=== PATIENT | male | born 1985 | race Caucasian/White ===

== ENCOUNTER 2024-05-17 22:22 | Emergency (ER) | payer OTHER, SELFPAY ==
[2024-05-17 22:29] VITALS: BP 137/89; PULSE 156; RESP 18; TEMP 36.9; O2SAT 95; BMI 26.2
[2024-05-17 23:29] LABS: Appearance Urine Clear (Clear); Bilirubin Urine Negative (Negative); Blood Urine Negative (Negative); Color Urine Yellow (Yellow); Glucose Urine Negative (Negative); Ketones Urine Negative (Negative); Leukocyte Esterase Urine Negative (Negative); Nitrite Urine Negative (Negative); Protein Urine Negative (Negative); Specific Gravity Urine <= 1.005 (1.000-1.030); Urobilinogen Urine 0.2 (0.2-1.0); pH Urine 5.5 (5.0-8.5)
--- NOTE | 2024-05-17 23:35 | ED.ALCOHOL ---
HPI - Alcohol General Chief Complaint: Alcohol/Intoxication Stated Complaint: wants to detox Time Seen by Provider: 05/17/24 23:23 History of Present Illness HPI narrative: This 38-year-old male comes in with his sister because of alcohol intoxication. He states that he has been using alcohol abusively for the past 20 years or so. He drinks lots of alcohol over the course of about 4 hours during the day and then begins to have withdrawal symptoms by the next day at which time he takes alcohol again. 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 He states that he gets very diaphoretic and shaky at times and these symptoms are relieved after taking alcohol. He is interested in detox and wants to quit this lifestyle. He denies taking any other street drugs. He states that he does take Adderall. He reports that his last drink was about 2 hours ago. Currently he is not feeling any withdrawal symptoms. Related Data Home Medications ?Medication ?Instructions ?Recorded ?Confirmed dextroamphetamine-amphetamine ER 10 mg PO DAILY 05/17/24 05/17/24 10 mg 24hr capsule,extend release (Adderall XR) Allergies Allergy/AdvReac Type Severity Reaction Status Date / Time pencillin Allergy Mild hive Uncoded 05/17/24 22:41 Review of Systems Status of ROS Reports: 10 or more systems reviewed and unremarkable except as noted in History and below Narrative Constitutional: No fevers, no weight gain or loss. Eyes: No discharge. No vision changes. HENT: No congestion, no sore throat, no ear pain. Cardiovascular: No chest pain, no palpitations. Respiratory: No shortness of breath, no wheezes, no cough. Gastrointestinal: No abdominal pain, no vomiting, no diarrhea. Genitourinary: No dysuria, no hematuria. Musculoskeletal: Normal range of motion. Skin: No rashes, no pruritis. Neurological: No dizziness, weakness, sensory change, speech change. Endo/Heme/Allergies: No bruising or bleeding. No polydipsia. Pysch: no suicidality, no anxiety, no insomnia. Alcohol abuse with withdrawal symptoms daily. All other systems reviewed and are negative. Exam Narrative: Exam Narrative: Constitutional: Well-developed, well-nourished, no acute distress. HEENT: Normocephalic, atraumatic. Neck: Normal range of motion. Nontender. Supple. Heart: Regular. No murmurs. Normal rate. Intact distal pulses. Lungs: Clear to auscultation. No chest discomfort. No wheezes, rhonchi, or rales. Abdomen: Normal bowel sounds. Nontender. No rebound tenderness. Genitalia: Deferred. Back: No midline tenderness. Normal range of motion. Extremities: Normal range of motion. No injury. Skin: Intact. No rash. Warm. No erythema or pallor. Neurologic: No altered sensation. No weakness. Alert and oriented. Psychiatric: No suicidality. No anxiety or depression. Alcohol abuse with daily withdrawal symptoms. Nursing notes and vitals signs are reviewed. Const: Vital Signs, click to edit/add: Vital Signs - 24 hr 05/17/24 22:29 Temperature 98.5 F Pulse Rate [Pulse Oximeter] 156 H Respiratory Rate 18 Blood Pressure [Ri ght Upper Arm] 137/89 Pulse Oximetry 95 Oxygen Delivery Me thod Room Air Course Vital Signs Vital signs: Initial Vital Signs Temperature 98.5 F 05/17/24 22:29 Temperature Source Temporal Artery Scan 05/17/24 22:29 Pulse Rate 156 H 05/17/24 22:29 Respiratory Rate 18 05/17/24 22:29 Blood Pressure 137/89 05/17/24 22:29 Blood Pressure Mean 105 05/17/24 22:29 Blood Pressure Position Sitting 05/17/24 22:29 Pulse Oximetry 95 05/17/24 22:29 Oxygen Delivery Method Room Air 05/17/24 22:29 Vital Signs Temperature 98.5 F 05/17/24 22:29 Pulse Rate 156 H 05/17/24 22:29 Respiratory Rate 18 05/17/24 22:29 Blood Pressure 137/89 05/17/24 22:29 Pulse Oximetry 95 05/17/24 22:29 Oxygen Delivery Method Room Air 05/17/24 22:29 Temperature 98.5 F 05/17/24 22:29 Pulse Rate 156 H 05/17/24 22:29 Respiratory Rate 18 05/17/24 22:29 Blood Pressure 137/89 05/17/24 22:29 Pulse Oximetry 95 05/17/24 22:29 Oxygen Delivery Method Room Air 05/17/24 22:29 MDM - Alcohol MDM Narrative Medical decision making narrative: This patient comes in seeking detox and treatment to help stop taking alcohol. He arrives with normal vital signs but is tachycardic. He did receive an oral dose of Ativan 2 mg. Arrangements are being made for placement in detox. Discharge Plan Discharge Clinical Impression: Alcohol withdrawal syndrome Prescriptions: No Action dextroamphetamine-amphetamine [Adderall XR] 10 mg capsule,extended release 24hr 10 mg PO DAILY
[2024-05-17 23:36] LABS: RBC Urine 0-2 (0-2); Squamous Epithelial Cell Urine Few (None-Few); WBC Urine 0-2 (0-5)
[2024-05-17] MEDS: LORazepam 0.5 MG TABLET 2 MG PO (23:39)
[2024-05-17 23:41] VITALS: BP 122/76; PULSE 106; RESP 18; O2SAT 98
[2024-05-17 23:53] LABS: Basophils Absolute Auto 0.04 K/uL (0.00-0.30); Basophils Percent Auto 0.7 % (0.0-3.0); Eosinophils Absolute Auto 0.14 K/uL (0.00-0.50); Eosinophils Percent Auto 2.5 % (0.0-7.0); Hematocrit 42.6 % (37.0-53.0); Hemoglobin* 15.2 gm/dL (13.5-17.5); Immature Granulocytes Abs Auto 0.04 K/uL (0.00-0.30); Immature Granulocytes Pct Auto 0.7 %; Lymphocytes Absolute Auto 1.69 K/uL (0.90-2.90); Lymphocytes Percent Auto 30.7 % (20-44); Mean Corpuscular HGB Conc 36 gm/dL (32-36); Mean Corpuscular Hemoglobin 32 pg (26-34); Mean Corpuscular Volume 88 fL (80-100); Monocytes Percent Auto 4.7 % (0.0-11.0); Neutrophils Absolute Auto 3.34 K/uL (1.7-7.0); Neutrophils Percent Auto 60.7 % (42.0-72.0); Platelet Count* 266 K/uL (140-440); RDW Coefficient of Variation % 11.6 % (11.5-15.5); Red Blood Count 4.83 m/uL (4.30-5.90); White Blood Count* 5.51 K/uL (4.50-11.00)
[2024-05-17 23:54] LABS: Slide Review Reflex No
--- OUTSIDE RECORDS SUMMARY | 2024-05-17 23:59 | XMS_ITS | Clinical Summary ---
Author Organization [facility] Address [address] [place] [id number] Care Team Providers Care Mechanical Assembly Name Role Phone Vernon Fine MD Primary Care Provider + Allergies Active Allergy Reactions Criticality Noted Date Comments Amoxicillin Hives 02/28/2015 Penicillins Hives 02/28/2015 Medications multivitamin (MVI) tablet Take 1 tablet by mouth once daily. 0 7 Active cholecalciferol (VITAMIN D-3) 2,000 unit capsule Take 1 capsule by mouth once daily. 0 7 Active Citrulline 1 gram/4 gram pwpk 1 Active creatine, bulk, 100 % powd 1 Active dextroamphetamine- amphetamine (Adderall XR) 20 mg Extended-Release capsuleIndications :ADHD, predominantly inattentive type Take 1 Capsule (20 mg) by mouth once daily. 30 Capsule 2 Active dextroamphetamine- amphetamine (Adderall XR) 20 mg Extended-Release capsuleIndications :ADHD, predominantly inattentive type Take 1 Capsule (20 mg) by mouth once daily. 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 Immunizations Immunization Administration Dates Next Due DTP 02/07/1991, 0,05/29/1987,1986,1986 Hepatitis B, Unspecified 06/07/2002,11/23/2001,0 09/14/2001 Hib Conjugate, Unspecified 08/23/1989 Inactivated Polio Vaccine 02/07/1991,,05/29/1987,1986,1986 Influenza, IIV4 11/25/2020 MMR 09/11/1998,09/25/1991,11/11/1987 Td, Preservative Free (age > = 7 Years) 09/14/2001,09/11/1998 Tdap 02/26/2015,09/14/2001 Family History Medical History Relation Name Comments Neuropathy Father Thyroid Disease Father Graves COPD Mother Cancer-breast Mother in remission Other Mother emphysema, smok er Psychiatric illness Mother possible anxiety, insomnia Other Other pat cousin 18 s [place] cardiac in basketball game Premature CHD (under age 60) Paternal Grandfather several [place], 1st age 18 Good Health Sister Relation Name Status Comments Father Alive Mother Alive Other Paternal Grandfather Sister Alive Social History Tobacco Use Types Packs/Day Years Used Date Smoking Tobacco: Former Cigarettes Q uit: 02/07/2017 Smokeless Tobacco: Never Tobacco Cessation:Ready to Q uit: Yes; Counseling Given: Yes Alcohol Use Standard Drinks/Week Comments Yes 0 (1 standard drink = 0.6 oz pur e alcohol) 3/week PHQ-2 Answer Date Recorded PHQ-2 TOTAL SCORE 0 04/29/2020 Social Connections Answer Date Recorded Frequency of Communication with Friends and Fami ly Not on file 02/07/2021 Financial Resource Strain Answer Date R ecorded Difficulty of Paying Living Expenses Not on file 02/07/2021 Difficulty of Paying Living Expenses Not on file 02/07/2021 Sex and Gender Information Value Date Recorded Sex Assigned at Male 04/28/2020 12:00 PM CDT 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 Gender Identity Male 04/28/2020 12:00 PM CDT Sexual Orientation Straight 04/28/2020 12 :00 PM CDT Obstetrics History Last Filed Vital Signs Vital Sign Reading Time Taken Comments Blood Pressure 120/66 11/25/2020 8:55 AM CDT Pulse 74 11/25/2020 8:55 AM CDT Temperature 36.4 C (97.6 F) 08/27/2020 2:16 PM CDT Respiratory Rate 16 08/28/2018 10:28 AM CDT Oxygen Saturation 100% 08/27/2020 2:16 PM CDT Inhaled Oxygen Concentration - - Weight 90.7 kg (200 lb) 11/25/2020 8:55 AM CDT Height 186.4 cm (6' 1.39) 04/29/2020 2:10 PM CD T Body Mass Index 26.11 04/29/2020 2:10 PM CDT Plan of Treatment Health Maintenance Due Date Last Done Comments HIV for age 15-65 2001 Hepatitis C screening for age 18-79 2004 BMI (ht and wt on same day) for age 18+ 04/29/2021 04/29/2020, 03/20/2019, 11/01/2018, Additional history exists Depression screening for age 12+ 04/29/2021 04/29/2020, 11/01/2018, 12/13/2016, Additional history exists Lipids for age 35-44 2021 COVID-19 vaccine series ( season) 2023 Influenza Vaccine (Season Ended) 2024 11/25/2020 Tetanus booster 02/26/2025 02/26/2015, 09/2001, 09/14/2001, Additional history exists Tdap Completed 02/26/2015, 09/14/2001 Pneumococcal series for age 6-49 Aged Out No longer eligible based on patient's age to complete this topic Insurance [facility] [employer] [address] [place] [id number] Care Teams Mechanical Assembly Relationship Specialty Start Date End Date Vernon Fine MD [address] [address] PCP - General Family Practice 03/12/15
--- OUTSIDE RECORDS SUMMARY | 2024-05-17 23:59 | XMS_ITS | Encounter Summary ---
Author Organization [email or web address] Address [address] [place] [address] Care Team Providers Care Car Rental Deliverer Name Role Phone Ceasar Roland PA-C Primary Care Provider [phone] Reason for Visit * Reason Comments Medication Questions Entered automatical ly based on patient selection in [facility]. Encounter Details Date Type Department Care Team (Late st Contact Info) Description 04/16/2024 11:30 AM CDT E-Visit [place] [id number] [facility] [id number] [place] [address] Ceasar Roland PA-C [address] [place] [address] Dx: Attention deficit hyperactivity disorder (ADHD), predominantly inattentive type (HRC) Social History Tobacco Use Types Packs/Day Years Used Date Smoking Tobacco: Former Cigarettes 1 17 0 05/27/2003 - 05/26/2020 Passive Smoke Exposure: Past Smokeless Tobacco: Current Last attempted to quit: 08/17/2014 Comments:Nicotene Packet/Gum Alcohol Use Standard Drinks/Week Comments Yes 0 (1 standard drink = 0.6 oz pur e alcohol) Infrequent. PHQ-2 Answer Date Recorded PHQ-2 Score 2 07/07/2023 Financial Resource Strain Answer Date R ecorded Is it hard for you to pay fo r the very basics like food, housing, medical care or heating? No 04/28/2023 Food Insecurity Answer Date Recorded Does your food run out before you have the money to buy more? No 04/28/2023 Transportation Needs Answer Date Record ed Does a lack of transportatio n keep you from your medical appointments or from getting your medications? 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 Signed order needed. Requested medication needs an order signed by an authorized prescriber. See pt's [facility] message. Pt last appointment with PCP was on 07/07/23. Pt has appointment scheduledon 05/02/24. Medication last prescribed with start date of 03/19/24 for #60 with no refills Review pended order for accuracy and sign if appropriate Requested Prescriptions Pending Prescriptions Disp Refills amphetamine-dextroamphetamine XR (ADDERALL XR) 10 MG 24 hour release capsule 60 Capsule 0 Sig: Take 1 Capsule (10 mg) by mouth two times a day for 30 days. Problem list reviewed as related to this call. Future Appointments Date Time Provider Department Center 05/02/2024 10:30 AM Ceasar Roland PA-C [facility] documented in this encounter Plan of Treatment Not on file documented as of this encounter Visit Diagnoses Diagnosis Attention deficit hyperactivity disorder (ADHD), predominantly inattentive type (HRC) documented in this encounter Care Teams Car Rental Deliverer Relationship Specialty Start Date End Date Ceasar Roland PA-C [address] [place] [address] PCP - General Physician Sub Plant Manager 11/23/23 documented as of this encounter
--- OUTSIDE RECORDS SUMMARY | 2024-05-17 23:59 | XMS_ITS | Clinical Summary ---
Author Organization [employer] Address [address] [place] [address] Care Team Providers Care Logistics Account Manager Name Role Phone Ceasar Roland PA-C Primary Care Provider [phone] Source Comments You are receiving this document as you are listed as the primary care provider,follow-up provider, or the patient has been referred to you for consultation.This is in compliance with the Medicare and[facility] EHR Incentive Program,which states Providers who transition their patient to another setting of careor provider of care or refers their patient to another provider of care shouldprovide summary care record for each transition of care or referral. i[facility]IM[facility] Allergies Active Allergy Reactions Criticality Noted Date Comments Penicillins Hives High 02/26/2015 Medications MULTIPLE VITAMIN OR Active amphetamine-dext roamphetamine XR (ADDERALL XR) 20 MG 24 hour release capsuleIndicatio ns:Attention deficit hyperactivity disorder (ADHD), unspecified ADHD type (HRC) Take 1 Capsule (20 mg) by mouth daily for 30 days. 1 of 3 30 Capsule 05/03/19 25 025 Active amphetamine-dext roamphetamine XR (ADDERALL XR) 20 MG 24 hour release capsuleIndicatio ns:Attention deficit hyperactivity disorder (ADHD), unspecified ADHD type (HRC) Take 1 Capsule (20 mg) by mouth daily for 30 days. 2 of 3 Do not start before June 01, 2024. 30 Capsule 06/02/19 25 025 Active amphetamine-dext roamphetamine XR (ADDERALL XR) 20 MG 24 hour release capsuleIndicatio ns:Attention deficit hyperactivity disorder (ADHD), unspecified ADHD type (HRC) Take 1 Capsule (20 mg) by mouth daily for 30 days. 3 of 3 Do not start before July 01, 2024. 30 Capsule 07/02/19 25 025 Active amphetamine-dext roamphetamine XR (ADDERALL XR) 10 MG 24 hour release capsuleIndicatio ns:Attention deficit hyperactivity disorder (ADHD), predominantly inattentive type (HRC) Take 1 Capsule (10 mg) by mouth two times a day for 30 days. Do not start before January 18, 2024. 60 Capsule 01/18/20 24 025 Discontinued amphetamine-dext roamphetamine XR (ADDERALL XR) 10 MG 24 hour release capsuleIndicatio ns:Attention deficit hyperactivity disorder (ADHD), predominantly inattentive type (HRC) Take 1 Capsule (10 mg) by mouth two times a day for 30 days. 60 Capsule 12/21/19 24 025 Discontinued cyclobenzaprine (FLEXERIL) 5 MG tablet Take 1-2 Tablets (5-10 mg) by mouth three times a day as needed for Muscle Spasms. Best taken before bed 20 Tablet 02/07/20 24 025 Discontinued(*R esolved Condition) amphetamine-dext roamphetamine XR (ADDERALL XR) 10 MG 24 hour release capsuleIndicatio ns:Attention deficit hyperactivity disorder (ADHD), predominantly inattentive type (HRC) Take 1 Capsule (10 mg) by mouth two times a day for 30 days. 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 Encounters Date Type Department Care Team Description 05/03/2024 Results Follow-Up [place] [address] [facility] [id number] [place] [phone] Ceasar Roland PA-C 05/02/2024 11:00 AM CDT Lab Visit [facility] [id number] [place] [address] [phone] Elevated liver enzymes; Well adult exam 05/02/2024 10:30 AM CDT Office Visit [address] [phone] Ceasar Roland PA-C Well adult exam (Primary Dx); Attention deficit hyperactivity disorder (ADHD), unspecified ADHD type (HRC); Elevated liver enzymes 04/16/2024 11:30 AM CDT E-Visit [address] [phone] Ceasar Roland PA-C Dx: Attention deficit hyperactivity disorder (ADHD), predominantly inattentive type (HRC) 03/19/2024 9:30 AM RUCHING MACHINE OPERATOR E-Visit [address] [phone] Ceasar Roland PA-C Dx: Attention deficit hyperactivity disorder (ADHD), predominantly inattentive type (HRC) from Last 3 Months Immunizations Immunization Administration Dates Next Due DTP 02/07/1991, 0,05/29/1987,1986,1986 HepB Ped/Adol (0-18 yrs) 06/07/2002,11/23/2001,0 09/14/2001 HepB, Unspecified Formulation 06/07/2002, 002,09/14/2001 Hib, Unspecified Formulation 08/23/1989 IPV (Polio) 02/07/1991, 0,05/29/1987,1986,1986 Influenza IIV4 (Quadrivalent ) 0.5mL (65382) 11/25/2020 MMR 09/11/1998,09/25/1991,11/11/1987 OPV, Trivalent (Orimune or tOPV) 992,08/23/1989,05/29/1987,1986,1986 Td (7+ yrs) 09/14/2001,09/11/1998 Td, Preservative Free 09/14/2001 Tdap 02/26/2015,09/14/2001 Family History Medical History Relation Name Comments Cancer, Melanoma Father Cancer, Prostate Father Diabetes, Type II Father Cancer, Colon Paternal Grandmother Relation Name Status Comments Father Alive Mother Alive Paternal Grandmother Social History Tobacco Use Types Packs/Day Years Used Date Smoking Tobacco: Former Cigarettes 1 17 0 05/27/2003 - 05/26/2020 Passive Smoke Exposure: Past Smokeless Tobacco: Current Last attempted to quit: 08/17/2014 Tobacco Cessation:Ready to Q uit: Not Asked; Counseling Given: Not Answered Comments:Nicotene Packet/Gum Alcohol Use Standard Drinks/Week Comments Yes 0 (1 standard drink = 0.6 oz pur e alcohol) Infrequent. PHQ-2 Answer Date Recorded PHQ-2 Score 2 07/07/2023 Hunger Vital Sign Answer Date Recorded Within the past 12 months, y ou worried that your food would run out before you got the money to buy more. Never true 05/02/19 Within the past 12 months, t he food you bought just didn't last and you didn't have money to get more. Never true 05/01/2024 PRAPARE - Transportation Answer Date Re corded In the past 12 months, has l ack of transportation kept you from medical appointments or from getting medications? No 04/08 In the past 12 months, has l ack of transportation kept you from meetings, work, or from getting things needed for daily living? No 05/01/2024 Housing Stability Vital Sign Answer Gavin e Recorded In the last 12 months, was t here a time when you were not able to pay the mortgage or rent on time? No 05/01/2024 In the past 12 months, how m any times have you moved where you were living? 0 05/01/2024 At any time in the past 12 m [facility], were you homeless or living in a penitentiary (including now)? No 05/01/2024 Financial Resource Strain Answer Date R ecorded [...] Sex Assigned at Male 01/06/2021 8:29 AM RUCHING MACHINE OPERATOR Legal Sex Male 4:54 AM CDT Gender Identity Male 01/06/2021 8:29 AM RUCHING MACHINE OPERATOR Sexual Orientation Straight 01/06/2021 8: 29 AM RUCHING MACHINE OPERATOR Last Filed Vital Signs Vital Sign Reading Time Taken Comments Blood Pressure 124/83 05/02/2024 10:13 AM CDT Pulse 94 05/02/2024 10:13 AM CDT Temperature 36.4 C (97.6 F) 02/07/2024 8:14 AM RUCHING MACHINE OPERATOR Respiratory Rate 16 05/02/2024 10:13 AM CDT Oxygen Saturation 98% 09/05/2023 12:46 PM CDT Inhaled Oxygen Concentration - - Weight 92.5 kg (204 lb) 05/02/2024 10:13 AM CDT Height 186.7 cm (6' 1.5) 05/02/2024 10:13 AM CD T Body Mass Index 26.55 05/02/2024 10:13 AM CDT Plan of Treatment Health Maintenance Due Date Last Done Comments COVID-19 Vaccine ( season) 2023 Influenza (#1) 2023 11/25/2020 DTaP/Tdap/Td (9 - Tdap) 02/26/2025 02/26/19 16, 09/14/2001, 09/14/2001, Additional history exists Adult Preventive Visit 05/02/2026 , 07/07/2023, 11/26/2021, Additional history exists Diabetes Screening- (based on age and BMI) 05/03/2027 05/02/2024, 07/08/2023, 11/24/2021 Cholesterol 05/02/2029 05/02/2024, 05/02/2023, 11/24/2021 Zoster/Shingles (1 of 2) 2036 Hib Completed 08/23/1989 IPV (Polio) Completed 02/07/1991, 02/1991, 08/23/1989, Additional history exists HepB Completed 06/07/2002, 02/2002, 11/23/2001, Additional history exists HIV Screening (Preventive Services) Completed 02/26/2015 Hep C Screening (Preventive Services) Completed 11/24/2021 HPV Vaccine Aged Out No longer eligi ble based on patient's age to complete this topic HepA Aged Out No longer eligi ble based on patient's age to complete this topic MCV4 Aged Out No longer eligi ble based on patient's age to complete this topic Meningococcal B Aged Out No longer el igible based on patient's age to complete this topic Pneumococcal Aged Out No longer eligi ble based on patient's age to complete this topic Procedures Procedure Name Priority Date/Time Associated Diagnosis Comments LIPID PANEL & DIRECT LDL (IF NEEDED) Routine 05/02/2024 10:47 AM CDT Well adult exam HGB A1C Routine 05/02/2024 10:47 AM CDT Well adult exam COMPREHENSIVE METABOLIC PANEL Routine 05/02/2024 10:47 AM CDT Elevated liver enzymes HEPATITIS C ANTIBODY, WITH REFLEX Routine 11/24/2021 9:06 AM CDT Need for hepatitis C screening test HIV ANTIBODY Routine 02/26/2015 8:46 AM RUCHING MACHINE OPERATOR Screening for HIV (human immunodeficiency virus) from Last 3 Months or Most Recently Relevant to Health Maintenance Results * (ABNORMAL) Lipid Panel & Direct LDL (if Needed) (05/02/2024 10:47 AM CDT) Cholesterol 221(H) 0 - 199 mg/dL 05/02/2024 4:43 PM [facility] Triglyceride 120 <=149 mg/dL 05/02/2024 4:43 PM [facility] HDL Cholesterol 97 >=40 mg/dL 4:43 PM [facility] LDL, Calculated 100 <130 mg/dL 4:43 PM [facility] Non HDL Chol, Calculated 124 <=159 mg/dL 05/02/2024 4:43 PM [facility] Cholesterol/HDL Ratio 2.3 <=5.0 05/02/2024 4:43 PM [facility] Hours Fasting 0.0 8 - 12 Hours 05/02/2024 4:43 PM [facility] Blood Venipuncture / Unknown 05/02/2024 10:47 AM CDT 05/02/2024 10:47 AM CDT us Ceasar Roland PA-C LAB_1 Final Result [facility] [address] [place] [phone] * (ABNORMAL) Comp Metabolic Panel (05/02/2024 10:47 AM CDT) Sodium 136 136 - 145 mmol/L 05/02/2024 4:43 PM [facility] Potassium 4.6 3.5 - 5.1 mmol/L 05/02/2024 4:43 PM [facility] Chloride 101 98 - 109 mmol/L 05/02/2024 4:43 PM [facility] CO2 27 20 - 29 mmol/L 05/02/2024 4:43 PM [facility] Anion Gap 8 6 - 16 mmol/L 05/02/2024 4:43 PM [facility] Calcium 10.3 8.4 - 10.4 mg/dL 05/02/2024 4:43 PM [facility] BUN 18 7 - 26 mg/dL 05/02/2024 4:43 PM [facility] Creatinine 0.88 0.73 - 1.18 mg/dL 05/02/2024 4:43 PM [facility] Alkaline Phosphatase 62 40 - 150 U/L 05/02/2024 4:43 PM [facility] AST (SGOT) 131(H) 10 - 40 U/L 05/02/2024 4:43 PM [facility] ALT (SGPT) 169(H) 0 - 55 U/L 05/02/2024 4:43 PM [facility] Bilirubin, Total 1.4(H) 0.2 - 1.2 mg/dL 05/02/2024 4:43 PM [facility] Protein, Total 7.9 6.4 - 8.3 g/dL 05/02/2024 4:43 PM [facility] Albumin 4.9 3.5 - 5.0 g/dL 05/02/2024 4:43 PM [facility] Glucose 97 70 - 100 mg/dL 05/02/2024 4:43 PM [facility] Comment:The given reference range is for the fasting state. Non-fasting reference range for glucose is 70 - 180 mg/dL. GFR, Estimated >60 >60 mL/min/1.7 3m2 05/02/2024 4:43 PM [facility] Hours Fasting 0.0 8 - 12 Hours 05/02/2024 4:43 PM [facility] Blood Venipuncture / Unknown 05/02/2024 10:47 AM CDT 05/02/2024 10:47 AM CDT Ceasar Roland PA-C LAB_1 Final Result Performing Organization Address City/[facility]/ZIP Co de Phone Number [facility] [address] [place] [phone] * Hgb A1C (05/02/2024 10:47 AM CDT) Hemoglobin A1C 5.0 <=5.6 % 05/02/2024 8:23 PM T [facility] Estimated Average Glucose (Calc) 97 < 117 mg/dL 05/02/2024 8:23 PM [facility] Comment:Estimated average gl ucose (eAG) converts A1c into glucose units (mg/dL) and estimates average glucose over the past approximately 3 months. The eAG reference interval (<117 mg/dL) corresponds to an A1c of <5.7%. Blood Venipuncture / Unknown 05/02/2024 10:47 AM CDT 05/02/2024 10:47 AM CDT us Ceasar Roland PA-C LAB_1 Final Result [facility] [address] [address], [facility] * Hepatitis C Antibody, with Reflex (11/24/2021 9:06 AM CDT) Pathologist [facility] Hepatitis C Antibody Negative (Non Reactive) Negative (Non Reactive) 11/24/2021 3:22 PM CDT [facility] Comment:Antibodies to HCV no t detected. Does not exclude the possiblity of exposure to HCV. Blood Venipuncture / Unknown 11/24/2021 9:06 AM CDT 11/24/2021 9:06 AM CDT Alex Escudero PA-C LAB_1 Final Resul t Performing Organization Address [facility] [place] [address], [facility] [phone] * HIV ANTIBODY (02/26/2015 8:46 AM RUCHING MACHINE OPERATOR) Pathologist [facility] HIV 1/2 Antibody Negative (Non Reactive) [facility] Comment: HIV Antibody testing may be falsely negative during the window period. If the patient has had recent exposure (within the past four weeks), consider contacting Infectious Diseases for clarification. 02/26/2015 8:46 AM RUCHING MACHINE OPERATOR 02/26/2015 8:47 AM RUCHING MACHINE OPERATOR Narrative [facility] - 02/27/2015 11:12 AM RUCHING MACHINE OPERATOR Performed at [facility], [address] [place] [address] Geovanni Brand MD LAB_1 Final Result Performing Organization Address [facility] de Phone Number [facility] [phone] from Last 3 Months or Most Recently Relevant to Health Maintenance Insurance [address] [place] [id number] SELF INSURED HP SEL[employer] INS[employer] Care Teams Logistics Account Manager Relationship Specialty Start Date End Date Ceasar Roland PA-C [address] [place] [address] PCP - General Physician Pipe Fitter Marine 11/23/23
--- OUTSIDE RECORDS SUMMARY | 2024-05-17 23:59 | XMS_ITS | Encounter Summary ---
Author Organization [employer] Address [address] [place] [address] Care Team Providers Care Paving Machine Operator Name Role Phone Ceasar Roland PA-C Primary Care Provider [phone] Encounter Details Date Type Department Care Team (Late st Contact Info) Description 05/03/2024 Results Follow-Up [place] [address] [facility] [address] [place] [phone] Ceasar Roland PA-C [address] [place] [address] Social History Tobacco Use Types Packs/Day Years [...] money to buy more. Never true 05/02/19 25 Within the past 12 months, t he [...] any time in the past 12 m [facility], were you homeless or living in a [facility]cf (including now)? No 05/01/2024 Financial Resource Strain [...] Sex Assigned at Male 01/06/2021 8:29 AM ABALONE PROCESSOR Legal Sex Male 4:54 AM CDT Gender Identity Male 01/06/2021 8:29 AM ABALONE PROCESSOR Sexual Orientation Straight 01/06/2021 8: 29 AM ABALONE PROCESSOR documented as of this encounter Plan of Treatment Scheduled Orders Name Type Priority Associated Diagnoses Orde r Schedule Liver Panel (Hepatic Function Panel) Lab Routine Elevated liver function tests Expected: 08/03/2024, Expires: 11/01/2024 documented as of this encounter Visit Diagnoses Diagnosis Elevated liver function tests- Primary Other abnormal blood chemistry documented in this encounter Care Teams Paving Machine Operator Relationship Specialty Start Date End Date Ceasar Roland PA-C [address] [place] [address] PCP - General Physician Infrastructure Manager 11/23/23 documented as of this encounter
--- OUTSIDE RECORDS SUMMARY | 2024-05-17 23:59 | XMS_ITS | Encounter Summary ---
Author Organization [facility] Address [address] [place] [address] Care Team Providers Care Counseling Services Manager Name Role Phone Ceasar Roland PA-C Primary Care Provider [phone] Encounter Details Date Type Department Care Team (Late st Contact Info) Description 02/25/2012 Scanned History External to Transferred Record, Provider [facility] Social History Tobacco Use Types Packs/Day Years Used Date Smoking Tobacco: Never Assessed Sex and Gender Information Value Date Recorded Sex Assigned at Male 01/06/2021 8:29 AM PROFESSOR OF MUSIC Legal Sex Male 4:54 AM CDT Gender Identity Male 01/06/2021 8:29 AM PROFESSOR OF MUSIC Sexual Orientation Straight 01/06/2021 8: 29 AM PROFESSOR OF MUSIC documented as of this encounter Plan of Treatment Not on file documented as of this encounter Visit Diagnoses Not on filedocumented in this encounter Care Teams Counseling Services Manager Relationship Specialty Start Date End Date Ceasar Roland PA-C [address] [place] [address] PCP - General Physician Wire Rigger 11/23/23 documented as of this encounter
--- OUTSIDE RECORDS SUMMARY | 2024-05-17 23:59 | XMS_ITS | Encounter Summary ---
Author Organization [employer] Address [address] [place] [address] Care Team Providers Care Plant Operations Vice President Name Role Phone Ceasar Roland PA-C Primary Care Provider [phone] Reason for Visit * Reason Comments Annual Exam Encounter Details Date Type Department Care Team (Latest Contact Info) Description 05/02/2024 10:30 AM CDT Office Visit [facility] [id number] [facility] [address] [place] [address] Ceasar Roland PA-C [address] [place] [address] Well adult exam (Primary Dx); Attention deficit hyperactivity disorder (ADHD), unspecified ADHD type (HRC); Elevated liver enzymes Social History Tobacco Use Types Packs/Day Years [...] the money to buy more. Never true 03/25/20 25 Within the past 12 months, t [...] were you homeless or living in a halfway (including now)? No 05/01/2024 Financial Resource Strain [...] Sex Assigned at Male 01/06/2021 8:29 AM FRAMING MILL SUPERVISOR Legal Sex Male 4:54 AM CDT Gender Identity Male 01/06/2021 8:29 AM FRAMING MILL SUPERVISOR Sexual Orientation Straight 01/06/2021 8: 29 AM FRAMING MILL SUPERVISOR documented as of this encounter Last Filed Vital Signs Vital Sign Reading Time Taken Comments Blood Pressure 124/83 05/02/2024 10:13 AM CDT Pulse 94 05/02/2024 10:13 AM CDT Temperature - - Respiratory Rate 16 05/02/2024 10:13 AM CDT Oxygen Saturation - - Inhaled Oxygen Concentration - - Weight 92.5 kg (204 lb) 05/02/2024 10:13 AM CDT Height 186.7 cm (6' 1.5) 05/02/2024 10:13 AM CD T Body Mass Index 26.55 05/02/2024 10:13 AM CDT documented in this encounter Patient Instructions * Patient Instructions* Ceasar Roland PA-C - 05/02/2024 10:30 AM CDT Plan: 1). Will follow up on labs and any concerns. 2). Continue to work on good diet/exercise regimen 3). For Adhd: Will continue Adderall 20mg XR daily as needed for now. (3 months of prescriptions sent to pharmacy). 4). Follow up with any other acute issues or concerns. documented in this encounter Progress Notes * Ceasar Roland PA-C - 05/02/2024 10:30 AM CDT Subjective: Phil Enciso is a 38 y.o. male and is here for a comprehensive physical exam. The following addressed: -No acute issues or concerns. -For ADHD: Continues to take Adderall 20mg XR daily as needed. Was going to try to stop taking but has been difficult with his job and amount of things he needs to do. Continues to work well and welltolerated. HABITS Smoking: No but nicotine pouches Alcohol use: Mostly on weekends. Previously had been drinking a lot more but has cut way back. (Note: Had elevated liver enzymes in 08/2023. Drug use: No Exercise: Starting to do more formal exercise. Joined gym more recently. (Discussed importance of continued and increased exercise regimen). Marital Status: Children: One son 2.5 years and two step daughters ages 15 and 17 Employment: telesales agent Significant Family Hx Reviewed Colonoscopy: No (Not due for) Do you take any herbs or supplements that were not prescribed by a doctor? No Are you taking calcium supplements? No Are you taking aspirin daily? No Review of Systems Do you have pain that bothers you in your daily life? No Pertinent items are noted in HPI. Comprehensive ROS otherwise negative. Objective: Vitals: 05/02/24 1013 BP: 124/83 Pulse: 94 Resp: 16 General Appearance: Alert, cooperative, no distress, appears stated age Head: Normocephalic, without obvious abnormality, atraumatic Eyes: PERRL, conjunctiva/corneas clear, EOM's intact, fundi benign, both eyes Ears: Normal TM's and external ear canals, both ears Nose: Nares normal, septum midline, mucosa normal, no drainage or sinus tenderness Throat: Lips, mucosa, and tongue normal; teeth and gums normal Neck: Supple, symmetrical, trachea midline, no adenopathy; thyroid: No enlargement/tenderness/nodules; no carotid bruit or JVD Back: Symmetric, no curvature, ROM normal, no CVA tenderness Lungs: Clear to auscultation bilaterally, respirations unlabored Chest wall: No tenderness or deformity Heart: Regular rate and rhythm, S1 and S2 normal, no murmur, rub or gallop Abdomen: Soft, non-tender, bowel sounds active all four quadrants, no masses, no organomegaly Extremities: Extremities normal, atraumatic, no cyanosis or edema Pulses: 2+ and symmetric all extremities Skin: Skin color, texture, turgor normal, no rashes or lesions Lymph nodes: Cervical, supraclavicular, and axillary nodes normal Neurologic: CNII-XII intact. Normal strength, sensation and reflexes throughout Assessment: Phil was seen today for annual exam. Diagnoses and all orders for this visit: Well adult exam - Hgb A1C; Future - Lipid Panel & Direct LDL (if Needed); Future Attention deficit hyperactivity disorder (ADHD), unspecified ADHD type (HRC) - amphetamine-dextroamphetamine XR (ADDERALL XR) 20 MG 24 hour release capsule; Take 1 Capsule (20 mg) by mouth daily for 30 days. 1 of 3 - amphetamine-dextroamphetamine XR (ADDERALL XR) 20 MG 24 hour release capsule; Take 1 Capsule (20 mg) by mouth daily for 30 days. 2 of 3 Do not start before June 01, 2024. - amphetamine-dextroamphetamine XR (ADDERALL XR) 20 MG 24 hour release capsule; Take 1 Capsule (20 mg) by mouth daily for 30 days. 3 of 3 Do not start before July 01, 2024. Elevated liver enzymes - Comp Metabolic Panel; Future Plan: 1). Will follow up on labs and any concerns. 2). Continue to work on good diet/exercise regimen 3). For Adhd: Will continue Adderall 20mg XR daily as needed for now. (3 months of prescriptions sent to pharmacy). 4). Follow up with any other acute issues or concerns. Patient Counseling: --Nutrition: Stressed importance of moderation in sodium/caffeine intake, saturated fat and cholesterol, caloric balance, sufficient intake of fresh fruits, vegetables, fiber, calcium, iron, and 1 mgof folate supplement per day (for females capable of ). --Discussed the issue of estrogen replacement, calcium supplement, and the daily use of baby aspirin. --Exercise: Stressed the importance of regular exercise. --Substance Abuse: Discussed cessation/primary prevention of tobacco, alcohol, or other drug use; driving or other dangerous activities under the influence; availability of treatment for abuse. --Sexuality: Discussed sexually transmitted diseases, partner selection, use of condoms, avoidance of unintended and contraceptive alternatives. --Injury prevention: Discussed safety belts, safety helmets, smoke detector, smoking near bedding or upholstery. --Dental health: Discussed importance of regular tooth brushing, flossing, and dental visits. --Immunizations reviewed. --Discussed benefits of screening colonoscopy. --After hours service discussed with patient Follow up as needed for acute illness or in 1 year for follow up physical documented in this encounter Plan of Treatment Not on file documented as of this encounter Results * (ABNORMAL) Lipid Panel & Direct LDL (if Needed) (05/02/2024 10:47 AM CDT) Pathologist [facility] Cholesterol 221(H) 0 - 199 mg/dL 05/02/2024 4:43 PM [facility] Triglyceride 120 <=149 mg/dL 05/02/2024 4:43 PM [facility] HDL Cholesterol 97 >=40 mg/dL 4:43 PM [facility] LDL, Calculated 100 <130 mg/dL 4:43 PM [facility] Non HDL Chol, Calculated 124 <=159 mg/dL 05/02/2024 4:43 PM [facility] Cholesterol/HDL Ratio 2.3 <=5.0 05/02/2024 4:43 PM [facility] Hours Fasting 0.0 8 - 12 Hours 05/02/2024 4:43 PM [facility] Blood Venipuncture / Unknown 05/02/2024 10:47 AM CDT 05/02/2024 10:47 AM CDT Ceasar Roland PA-C LAB_1 Final Result Performing Organization Address [facility]/ZIP Co de Phone Number [facility] [address] [place] [address] * Hgb A1C (05/02/2024 10:47 AM CDT) Pathologist [facility] Hemoglobin A1C 5.0 <=5.6 % 05/02/2024 8:23 PM CDT [facility] Estimated Average Glucose (Calc) 97 < 117 mg/dL 05/02/2024 8:23 PM CDT [facility] Comment:Estimated average gl ucose (eAG) converts A1c into glucose units (mg/dL) and estimates average glucose over the past approximately 3 months. The eAG reference interval (<117 mg/dL) corresponds to an A1c of <5.7%. Blood Venipuncture / Unknown 05/02/2024 10:47 AM CDT 05/02/2024 10:47 AM CDT Ceasar Roland PA-C LAB_1 Final Result [facility] [id number] [place] [address] * (ABNORMAL) Comp Metabolic Panel (05/02/2024 10:47 AM CDT) Pathologist [facility] Sodium 136 136 - 145 mmol/L 05/02/2024 4:43 PM CDT [facility] Potassium 4.6 3.5 - 5.1 mmol/L 05/02/2024 4:43 PM CDT [facility] Chloride 101 98 - 109 mmol/L 05/02/2024 4:43 PM CDT [facility] CO2 27 20 - 29 mmol/L 05/02/2024 4:43 PM CDT [facility] Anion Gap 8 6 - 16 mmol/L 05/02/2024 4:43 PM CDT [facility] Calcium 10.3 8.4 - 10.4 mg/dL 05/02/2024 4:43 PM [facility] BUN 18 7 - 26 mg/dL 05/02/2024 4:43 PM [facility] Creatinine 0.88 0.73 - 1.18 mg/dL 05/02/2024 4:43 PM [facility] Alkaline Phosphatase 62 40 - 150 U/L 05/02/2024 4:43 PM [facility] AST (SGOT) 131(H) 10 - 40 U/L 05/02/2024 4:43 PM [facility] ALT (SGPT) 169(H) 0 - 55 U/L 05/02/2024 4:43 PM [facility] Bilirubin, Total 1.4(H) 0.2 - 1.2 mg/dL 05/02/2024 4:43 PM [facility] Protein, Total 7.9 6.4 - 8.3 g/dL 05/02/2024 4:43 PM [facility] Albumin 4.9 3.5 - 5.0 g/dL 05/02/2024 4:43 PM [facility] Glucose 97 70 - 100 mg/dL 05/02/2024 4:43 PM [facility] Comment:The given reference range is for the fasting state. Non-fasting reference range for glucose is 70 - 180 mg/dL. GFR, Estimated >60 >60 mL/min/1.7 3m2 05/02/2024 4:43 PM [facility] Hours Fasting 0.0 8 - 12 Hours 05/02/2024 4:43 PM [facility] Blood Venipuncture / Unknown 05/02/2024 10:47 AM CDT 05/02/2024 10:47 AM T us Ceasar Roland PA-C LAB_1 Final Result [facility] [address] [place] [address] documented in this encounter Visit Diagnoses Diagnosis Well adult exam- Primary Routine general medical examination at a health care facility Attention deficit hyperactivity disorder (ADHD), unspecified ADHD type (HRC) Elevated liver enzymes Nonspecific elevation of levels of transaminase or lactic acid dehydrogenase (LDH) documented in this encounter Care Teams Plant Operations Vice President Relationship Specialty Start Date End Date Ceasar Roland PA-C [address] [place] [address] PCP - General Physician Gymnastic Coach 11/23/23 documented as of this encounter
--- OUTSIDE RECORDS SUMMARY | 2024-05-17 23:59 | XMS_ITS | Clinical Summary ---
Author Organization [facility] Address [address] [facility] [place] [address] Care Team Providers Care Senior Instrumentation Engineer Name Role Phone Vernon Fine MD Primary Care Provider + Allergies Active Allergy Reactions Criticality Noted Date Comments Amoxicillin Hives 03/03/2014 Penicillins Hives 03/03/2014 Medications multivitamin with minerals (THERA-M) 9 mg iron-400 mcg Tab tablet [MULTIVITAMIN WITH MINERALS (THERA-M) 9 MG IRON-400 MCG TAB TABLET] Take 1 tablet by mouth daily. 5 Active MEDICATION CANNOT BE REORDERED - PLEASE MANUALLY REORDER AND DISCONTINUE THE OLD ORDER [DOCOSHEXANOI C ACID-EICOSAPE NT 500 MG (FISH OIL) 500-100 MG CAP CAPSULE] Take 500 mg by mouth. 5 Active tiZANidine (ZANAFLEX) 4 MG tablet [TIZANIDINE (ZANAFLEX) 4 MG TABLET] Take 1 tablet (4 mg total) by mouth every 6 (six) hours as needed. 10 tablet 0 9 Active traMADol (ULTRAM) 50 mg tablet [TRAMADOL (ULTRAM) 50 MG TABLET] Take 1 tablet (50 mg total) by mouth every 6 (six) hours as needed for pain. 8 tablet 0 9 Active Active Problems Problem Noted Date Diagnosed Date Psoriasis 11/14/2014 Assessment & Plan: This would be a new diagnosis for this patient. His multiple discrete plaques and while they are not scaling, the fact that they're growing in her overall appearance is most consistent with psoriasis. I do think it would be reasonable to try treating with a moderate or high potency steroid given the thickness of the plaque and see if this improves. If he does not improve, I be inclined to try punch biopsy when convenient for the patient. -Patient to call if he wants to try topical treatment. Immunizations Name Administration Dates Next Due HepB, Unspecified 06/07/2002,11/23/2001,09/15/19 02 MMR (MMRII) 09/25/1991,09/25/1991,11/11/1987 TDAP (Adacel,Boostrix) 09/14/2001 Family History Medical History Relation Comments Emphysema Mother Relation Status Comments Father Alive Mother Alive Social History Tobacco Use Types Packs/Day Years Used Date Smoking Tobacco: Former Cigarettes 1 5 Alcohol Use Standard Drinks/Week Comments Yes 2 (1 standard drink = 0.6 oz pur e alcohol) Adolescent Education Answer Date Record ed Getting School Help Needed Not on file 11/23 Sex and Gender Information Value Date Recorded Sex Assigned at Not on file 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 Gender Identity Not on file Sexual Orientation Not on file Last Filed Vital Signs Vital Sign Reading Time Taken Comments Blood Pressure 118/83 11/11/2021 6:28 PM CDT Pulse 72 11/11/2021 6:28 PM CDT Temperature 36.8 C (98.2 F) 11/11/2021 1:02 PM CDT Respiratory Rate 28 11/11/2021 4:16 PM CDT Oxygen Saturation 100% 11/11/2021 6:29 PM CDT Inhaled Oxygen Concentration - - Weight 93 kg (205 lb) 11/11/2021 1:02 PM CDT Height 188 cm (6' 2) 11/11/2021 1:02 PM CDT Body Mass Index 26.32 11/11/2021 1:02 PM CDT Plan of Treatment Health Maintenance Due Date Last Done Comments ADVANCE CARE PLANNING 1986 ANNUAL REVIEW OF HM ORDERS 1986 HIV SCREENING 2001 HEPATITIS C SCREENING 2004 YEARLY PREVENTIVE VISIT 04/29/2021 04/29/2020 COVID-19 Vaccine ( season) 2023 INFLUENZA VACCINE (#1) 2023 11/25/2020 PHQ-2 (once per calendar year) 2024 DIABETES SCREENING 11/11/2024 11/11/2021, 1 , 08/30/2018 DTAP/TDAP/TD IMMUNIZATION (8 - Td or Tdap) 02/26/2025 02/26/2015, 09/14/2001, 09/14/2001, Additional history exists ZOSTER IMMUNIZATION (1 of 2) 2036 HEPATITIS B IMMUNIZATION Completed 003, 06/07/2002, 11/23/2001, Additional history exists HPV IMMUNIZATION Aged Out No longer e ligible based on patient's age to complete this topic MENINGITIS IMMUNIZATION Aged Out No l onger eligible based on patient's age to complete this topic Pneumococcal Vaccine: Pediatrics (0 to 5 Years) and At-Risk Patients (6 to 49 Years) Aged Out No longer eligible based on patient's age to complete this topic Procedures Procedure Name Priority Date/Time Associated Diagnosis Comments BASIC METABOLIC PANEL Routine 11/11/2021 1:21 PM CDT from Last 3 Months or Most Recently Relevant to Health Maintenance Results * (ABNORMAL) Basic metabolic panel (11/11/2021 1:21 PM CDT) Sodium 139 136 - 145 mmol/L 11/11/2021 1:53 PM CDT LABORATORY Potassium 4.2 3.4 - 5.3 mmol/L 11/11/2021 1:53 PM CDT [facility] Chloride 103 98 - 107 mmol/L 11/11/2021 1:53 PM CDT [facility] Carbon Dioxide (CO2) 26 22 - 29 mmol/L 11/11/2021 1:53 PM CDT [facility] Anion Gap 10 7 - 15 mmol/L 11/11/2021 1:53 PM CDT [facility] Urea Nitrogen 17.7 6.0 - 20.0 mg/dL 11/11/2021 1:53 PM CDT [facility] Creatinine 0.91 0.67 - 1.17 mg/dL 11/11/2021 1:53 PM CDT [facility] Calcium 9.5 8.6 - 10.0 mg/dL 11/11/2021 1:53 PM CDT LABORATORY Glucose 103(H) 70 - 99 mg/dL 11/11/2021 1:53 PM CDT [facility] GFR Estimate >90 >60 mL/min/1.7 3m2 11/11/2021 1:53 PM CDT [facility] Comment:Effective January 082020 eGFRcr in adults is calculated using the 2020 CKD-EPI creatinine equation which includes age and gender (Marko et al., NEJM, DOI: 10.1056/WUBMzp9948171) Blood STRUCTURE OF LEFT UPPER LIMB / Unknown Venipuncture / Unknown 11/11/2021 1:21 PM CDT 11/11/2021 1:23 PM CDT us Jason Velarde MD LAB - BLO OD ORDERABLES Final Result LABORATORY [facility] [address] Lab (1st floor, no room number) [place] [address], [facility] [phone] from Last 3 Months or Most Recently Relevant to Health Maintenance Insurance [employer] Care Teams Senior Instrumentation Engineer Relationship Specialty Start Date End Date Vernon Fine MD [facility] [address] [place] [address] PCP - General Family Practice 04/24/18
--- OUTSIDE RECORDS SUMMARY | 2024-05-17 23:59 | XMS_ITS | Encounter Summary ---
Author Organization [employer] Address [address] [place] [address] Care Team Providers Care High Density Press Operator Name Role Phone Ceasar Roland PA-C Primary Care Provider [phone] Encounter Details Date Type Department Care Team (Late st Contact Info) Description 05/02/2024 11:00 AM CDT Lab Visit [facility] [address] [place] [address] Elevated liver enzymes; Well adult exam Social History Tobacco Use Types Packs/Day Years [...] were you homeless or living in a custodial (including now)? No 05/01/2024 Financial Resource Strain [...] Sex Assigned at Male 01/06/2021 8:29 AM AGRICULTURAL PRODUCE SORTER Legal Sex Male 4:54 AM CDT Gender Identity Male 01/06/2021 8:29 AM AGRICULTURAL PRODUCE SORTER Sexual Orientation Straight 01/06/2021 8: 29 AM AGRICULTURAL PRODUCE SORTER documented as of this encounter Plan of Treatment Not on file documented as of this encounter Procedures Procedure Name Priority Date/Time Associated Diagnosis Comments LIPID PANEL & DIRECT LDL (IF NEEDED) Routine 05/02/2024 10:47 AM CDT Well adult exam COMPREHENSIVE METABOLIC PANEL Routine 05/02/2024 10:47 AM CDT Elevated liver enzymes HGB A1C Routine 05/02/2024 10:47 AM CDT Well adult exam documented in this encounter Results * (ABNORMAL) Lipid Panel & Direct LDL (if Needed) (05/02/2024 10:47 AM CDT) [facility] Cholesterol 221(H) 0 - 199 mg/dL 05/02/2024 4:43 PM CDT [facility] Triglyceride 120 <=149 mg/dL 05/02/2024 4:43 PM T [facility] HDL Cholesterol 97 >=40 mg/dL 4:43 PM T [facility] LDL, Calculated 100 <130 mg/dL 4:43 PM [facility] Non HDL Chol, Calculated 124 <=159 mg/dL 05/02/2024 4:43 PM [facility] Cholesterol/HDL Ratio 2.3 <=5.0 05/02/2024 4:43 PM [facility] Hours Fasting 0.0 8 - 12 Hours 05/02/2024 4:43 PM [facility] Blood Venipuncture / Unknown 05/02/2024 10:47 AM CDT 05/02/2024 10:47 AM CDT Ceasar Roland PA-C LAB_1 Final Result Performing Organization Address [facility] de Phone Number [facility] [address] [place] [address] * Hgb A1C (05/02/2024 10:47 AM CDT) [facility] Signature Hemoglobin A1C 5.0 <=5.6 % 05/02/2024 8:23 PM T [facility] Estimated Average Glucose (Calc) 97 < 117 mg/dL 05/02/2024 8:23 PM [facility] Comment:Estimated average gl ucose (eAG) converts A1c into glucose units (mg/dL) and estimates average glucose over the past approximately 3 months. The eAG reference interval (<117 mg/dL) corresponds to an A1c of <5.7%. Blood Venipuncture / Unknown 05/02/2024 10:47 AM CDT 05/02/2024 10:47 AM CDT us Ceasar Roland PA-C LAB_1 Final Result Performing Organization Address [facility]/ZIP Co de Phone Number [facility] [address] [address] * (ABNORMAL) Comp Metabolic Panel (05/02/2024 10:47 AM CDT) Sodium 136 136 - 145 mmol/L 05/02/2024 4:43 PM [facility] Potassium 4.6 3.5 - 5.1 mmol/L 05/02/2024 4:43 PM [facility] Chloride 101 98 - 109 mmol/L 05/02/2024 4:43 PM [facility] CO2 27 20 - 29 mmol/L 05/02/2024 4:43 PM [facility] Anion Gap 8 6 - 16 mmol/L 05/02/2024 4:43 PM [facility] Calcium 10.3 8.4 - 10.4 mg/dL 05/02/2024 4:43 PM [facility] BUN 18 7 - 26 mg/dL 05/02/2024 4:43 PM [facility] Creatinine 0.88 0.73 - 1.18 mg/dL 05/02/2024 4:43 PM [facility] Alkaline Phosphatase 62 40 - 150 U/L 05/02/2024 4:43 PM [facility] AST (SGOT) 131(H) 10 - 40 U/L 05/02/2024 4:43 PM [facility] ALT (SGPT) 169(H) 0 - 55 U/L 05/02/2024 4:43 PM [facility] Bilirubin, Total 1.4(H) 0.2 - 1.2 mg/dL 05/02/2024 4:43 PM [facility] Protein, Total 7.9 6.4 - 8.3 g/dL 05/02/2024 4:43 PM [facility] Albumin 4.9 3.5 - 5.0 g/dL 05/02/2024 4:43 PM [facility] Glucose 97 70 - 100 mg/dL 05/02/2024 4:43 PM [facility] Comment:The given reference range is for the fasting state. Non-fasting reference range for glucose is 70 - 180 mg/dL. GFR, Estimated >60 >60 mL/min/1.7 3m2 05/02/2024 4:43 PM [facility] Hours Fasting 0.0 8 - 12 Hours 05/02/2024 4:43 PM [facility] Blood Venipuncture / Unknown 05/02/2024 10:47 AM CDT 05/02/2024 10:47 AM CDT Ceasar Roland PA-C LAB_1 Final Result [facility] [address] [place] [address] documented in this encounter Visit Diagnoses Diagnosis Elevated liver enzymes Nonspecific elevation of levels of transaminase or lactic acid dehydrogenase (LDH) Well adult exam Routine general medical examination at a health care facility documented in this encounter Care Teams High Density Press Operator Relationship Specialty Start Date End Date Ceasar Roland PA-C [address] [place] [address] PCP - General Physician Supervisor Contact Lens 11/23/23 documented as of this encounter
--- OUTSIDE RECORDS SUMMARY | 2024-05-17 23:59 | XMS_ITS | Encounter Summary ---
Author Organization [employer] Address [address] [place] [address] Care Team Providers Care Diesel Retrofit Designer Name Role Phone Ceasar Roland PA-C Primary Care Provider + [phone] Encounter Details Date Type Department Care Team (Late st Contact Info) Description 03/07/2015 Correspondence External to [facility] IMMUNZATION RECORD Social History Tobacco Use Types Packs/Day Years Used Date Smoking Tobacco: Former Cigarettes Q uit: 05/26/2014 Smokeless Tobacco: Former Quit: 08/17/2014 Alcohol Use Standard Drinks/Week Comments Yes 0 (1 standard drink = 0.6 oz pur e alcohol) Infrequent. Sex and Gender Information Value Date Recorded Sex Assigned at Male 01/06/2021 8:29 AM SKEIN YARN DYER Legal Sex Male 4:54 AM CDT Gender Identity Male 01/06/2021 8:29 AM SKEIN YARN DYER Sexual Orientation Straight 01/06/2021 8: 29 AM SKEIN YARN DYER documented as of this encounter Plan of Treatment Not on file documented as of this encounter Visit Diagnoses Not on filedocumented in this encounter Care Teams Diesel Retrofit Designer Relationship Specialty Start Date End Date Ceasar Roland PA-C [address] [place] [address] PCP - General Physician Call Center Recruiter 11/23/23 documented as of this encounter
[2024-05-18 00:02] LABS: Amphetamine Screen Urine POSITIVE (Negative); Barbiturate Screen Urine Negative (Negative); Benzodiazepines Screen Urine Negative (Negative); Cannabinoid Screen Urine Negative (Negative); Cocaine Screen Urine Negative (Negative); Methadone Screen Urine Negative (Negative); Methamphetamines Screen Urine Negative (Negative); Opiate Screen Urine Negative (Negative); Oxycodone Screen Urine Negative (Negative); Phencyclidine Screen Urine Negative (Negative); Tricyclic Antidepressant Urine Negative (Negative)
[2024-05-18 00:12] LABS: Chloride* 100 mmol/L (96-114); Potassium* 3.8 mmol/L (3.6-5.1); Sodium* 137 mmol/L (135-149)
[2024-05-18 00:15] LABS: Anion Gap 17 mEq/L (7-15); Blood Urea Nitrogen* 19 mg/dL (5-24); Calcium* 9.2 mg/dL (8.4-10.6); Carbon Dioxide* 20 mmol/L (20-32); Creatinine* 0.9 mg/dL (0.5-1.5); Est. Creatinine Clearance* 130.66; Estimated Glomerular Filt Rate 113 ml/min; Glucose* 164 mg/dL (60-115)
[2024-05-18 00:16] LABS: Ethanol* 0.22 % (0.01-0.03)
[2024-05-18 01:21] VITALS: BP 122/78; PULSE 96; RESP 16; TEMP 36.8; O2SAT 98
== END 2024-05-18 01:46 | disposition other institution (70) ==
PROVIDERS: Emergency Provider Emergency Medicine Emergency Medical Services; PCP Physician Assistant Medical
DX: F10.239 Alcohol dependence with withdrawal, unspecified (principal)
CPT/HCPCS: 36415; 80048; 80306; 81001; 82077; 85025; 99284; A9270